=== PATIENT | male | born 1945 ===

== ENCOUNTER 2020-09-03 08:45 | Inpatient (IN) | payer OTHER ==
[~2020-09-03] VITALS: Ht 177.8 cm; Wt 104.3 kg
[2020-09-10] MEDS ORDERED: SIMVASTATIN20 MG (07:53)
[2020-09-10] MEDS ORDERED: HUMULIN 70100 UNIT/2 (07:53)
[2020-09-10] MEDS ORDERED: GLIMEPIRIDE4 M1 (07:53)
[2020-09-10] MEDS ORDERED: METFORMIN HCL1000 M3 (07:53)
[2020-09-10] MEDS ORDERED: LISINOPRIL-HCT1 EAC1 (07:53)
[2020-09-10] MEDS ORDERED: ST. JOSEPH ASPI81 M2 (07:53)
[2020-09-10] MEDS ORDERED: AMLODIPINE BESYL5 MG (07:53)
[2020-09-10] MEDS ORDERED: NAPROXEN500 MG (07:53)
[2020-09-10] MEDS ORDERED: TAMSULOSIN HCL0.4 MG (07:54)
[2020-09-12] MEDS ORDERED: ELIQUIS2.5 MG PO (16:50)
[2020-09-12] MEDS ORDERED: PERCOCET 5-3251 EACH PO (16:50)
[2020-09-12] MEDS ORDERED: DUI500 PO (16:50)
== END 2020-09-12 22:04 | disposition home or self-care (01) | DRG 470 ==
LOC: O/R 09-10 05:30 → SURH 09-10 05:30
PROVIDERS: ADMIT Orthopaedic Surgery; ATTEND Orthopaedic Surgery
PROC: 0MNN4ZZ Release Right Knee Bursa and Ligament, Percutaneous Endoscopic Approach (ICD-10-PCS; 2020-09-10)
PROC: 3E0F7SF Introduction of Other Gas into Respiratory Tract, Via Natural or Artificial Opening (ICD-10-PCS; 2020-09-10)
PROC: 0SRC0J9 Replacement of Right Knee Joint with Synthetic Substitute, Cemented, Open Approach (ICD-10-PCS; principal; 2020-09-10 08:30)
DX: M17.11 Unilateral primary osteoarthritis, right knee (principal); M22.11 Recurrent subluxation of patella, right knee; Z20.822 Contact with and (suspected) exposure to COVID-19

== ENCOUNTER → 2020-09-06 07:49 | Outpatient (CLI) | payer OTHER ==
[~2020-09-06 07:49] MED LIST: AMLODIPINE BESYL5 MG; DUI500 PO; ELIQUIS2.5 MG PO; GLIMEPIRIDE4 M1; HUMULIN 70100 UNIT/2; LISINOPRIL-HCT1 EAC1; METFORMIN HCL1000 M3; NAPROXEN500 MG; PERCOCET 5-3251 EACH PO; SIMVASTATIN20 MG; ST. JOSEPH ASPI81 M2; TAMSULOSIN HCL0.4 MG
== END | disposition home or self-care (01) ==
LOC: LAB 07:49
PROVIDERS: ATTEND Internal Medicine
DX: E13.9 Other specified diabetes mellitus without complications (principal)